=== PATIENT | male | born 1975 | race Caucasian/White ===

== ENCOUNTER 2018-09-18 12:00 | Day surgery (SDC) | payer OTHER, MEDICAID ==
[2018-09-18] MEDS ORDERED: LR 1,000 ML IV ONE (13:07)
[2018-09-18] MEDS ORDERED: ceFAZolin 2 GM/DEXTROSE 100 ML IV ONE (13:24)
[2018-09-18] MEDS ORDERED: LIDOCAINE 2% JELLY 20 ML (UROJECT) ONE (13:39)
[2018-09-18] MEDS ORDERED: MIDAZOLAM 2 MG/2 ML VIAL IVP ONE (13:46)
[2018-09-18] MEDS ORDERED: DEXAMETHASONE 4 MG/ML VIAL IVP PRN (13:47)
[2018-09-18] MEDS ORDERED: fentaNYL 100 MCG/2 ML INJ IVP PRN (13:47)
[2018-09-18] MEDS ORDERED: ALBUTEROL 3 ML DEYVIAL IH PRN (13:47)
[2018-09-18] MEDS ORDERED: ONDANSETRON 4 MG/2 ML VIAL IVP PRN (13:47)
[2018-09-18] MEDS ORDERED: LR 500 ML IV PRN (13:47)
[2018-09-18] MEDS ORDERED: LABETALOL HCL 5 MG/ML 20 ML MDV IVP PRN (13:47)
[2018-09-18] MEDS ORDERED: oxyCODONE IR 5 MG TAB PO PRN (13:47)
[2018-09-18] MEDS ORDERED: NALOXONE HCL 0.4 MG/ML INJ IVP PRN (13:47)
--- NOTE | 2018-09-18 13:49 | PDANEPAE ---
ANE History of Present Illness here for TURBT ANE Past Medical History - Cardiovascular History Hx Hypertension: No Hx Arrhythmias: No Hx Chest Pain: No Hx Coronary Artery / Peripheral Vascular Disease: No Hx CHF / Valvular Disease: No Hx Palpitations: No - Pulmonary History Hx COPD: No Hx Asthma/Reactive Airway Disease: No Hx Recent Upper Respiratory Infection: No Hx Oxygen in Use at Home: No Hx Sleep Apnea: No Sleep Apnea Screening Result - Last Documented: Negative - Neurologic History Hx Cerebrovascular Accident: No Hx Seizures: No Hx Dementia: No Neurologic History Comment: MIGRAINES SINCE CHILDHOOD - Endocrine History Hx Diabetes: No - Renal History Hx Renal Disorders: No Renal History Comment: SELF-CATH. BLADDER MASS - Liver History Hx Hepatic Disorders: No - Neurological & Psychiatric Hx Hx Neurological and Psychiatric Disorders: No - Cancer History Hx Cancer: No - Congenital Disorder History Hx Congenital Disorders: No - GI History Hx Gastrointestinal Disorders: Yes Gastrointestinal History Comment: ACID REFLUX - Other Health History Other Health History: ANEMIA IN PAST. BEDSORES - Chronic Pain History Chronic Pain: Yes (SHOULDER) - Surgical History Prior Surgeries: BLADDER SURGERY. CERVICAL FUSION. CYSTOSCOPIES. ORIF FEMUR JOSE. LEG FXS. RTC RIGHT. SPINAL CYST. SPLENECTOMY ANE Review of Systems Review of systems is: negative Review of Systems: - Exercise capacity METS (RN): 4 METS ANE Patient History - Allergies Allergies/Adverse Reactions: acetaminophen [From Vicodin] Allergy (Verified 05/10/15 10:07) ciprofloxacin Allergy (Verified 09/18/18 13:15) hydrocodone bitartrate [From Vicodin] Allergy (Verified 05/10/15 10:07) morphine Allergy (Verified 05/10/15 10:07) vancomycin Allergy (Verified 09/18/18 13:14) - Home Medications Home medications: home medication list seen and reviewed Home Medications: Baclofen [Baclofen 10 mg (RX)] 05/10/15 [Last Taken 09/18/18] Diazepam [Valium 2 MG (RX)] 05/10/15 [Last Taken 09/18/18] Colace 09/07/18 [Last Taken 09/18/18] Herbals/Supplements -Info Only 09/07/18 [Last Taken 09/18/18] Ranitidine HCl 09/07/18 [Last Taken 09/18/18] - NPO status NPO Status: no food or drink >8 hours NPO Since - Liquids (Date): 09/18/18 NPO Since - Liquids (Time): 11:00 NPO Since - Solids (Date): 09/17/18 NPO Since - Solids (Time): 20:00 - Smoking Hx Smoking Status: Former smoker ANE Labs/Vital Signs - Vital Signs Blood Pressure: 103/62 Heart Rate: 65 Respiratory Rate: 18 O2 Sat (%): 95 Height: 177.8 cm Weight: 74.843 kg ANE Physical Exam - Airway Neck exam: FROM Mallampati Score: Class 1 Mouth exam: normal dental/mouth exam - Pulmonary Pulmonary: no respiratory distress - Cardiovascular Cardiovascular: regular rate and rhythym - ASA Status ASA Status: III ANE Anesthesia Plan Anesthesia Plan: GA w LMA
[2018-09-18] MEDS ORDERED: PROPOFOL/EMULSION 500 MG/50 ML BOTTLE IV ONE (13:56)
[2018-09-18] MEDS ORDERED: fentaNYL 100 MCG/2 ML INJ ONE ×2 (13:58→14:38)
[2018-09-18] MEDS ORDERED: GENTAMICIN SULFATE IV ONE (14:00)
[2018-09-18] MEDS ORDERED: D5W IV ONE (14:00)
--- NOTE | 2018-09-18 14:11 | PDHPUP ---
History & Physical Update H&P update statement: This history and physical update is based on an assessment of the patient which was completed after admission or registration (within 24 hours), but prior to the surgery/procedure. H&P update: H&P reviewed & patient examined (Patient with colonized urine sample - Entercoccus and E coli. Preop abx gent and Ancef should provide adequate coverage for his urine. )
[2018-09-18] MEDS ORDERED: PHENYLEPHRINE HCL 100 MCG/ML SYR ONE (14:39)
[2018-09-18] MEDS: OPIUM/BELLADONNA ALKALO SUPP PR ONE ×2 (14:58→15:58)
[2018-09-18] MEDS ORDERED: ePHEDrine SULFATE 25 MG/5 ML SYR ONE (15:26)
--- NOTE | 2018-09-18 15:51 | POSTOPPROG ---
Post Op Note Date of Operation: 09/18/18 Surgeon: Fannie Smith Anesthesiologist: Nir Anesthesia: GET(General Endotracheal) Pre-op Diagnosis: bladder tumor, chronic indwelling catheter, neurogenic bladder Post-op Diagnosis: same Indication: bladder tumor Procedure: cysto,TURBT Findings: abnormal bladder mucosa concerning for tumor Inf/Abcess present in the surg proc area at time of surgery?: No EBL: Minimal Complications: None, patient tolerated procedure well Drains: Other (chronic lawson catheter) Specimen(s): bladder tumor
--- NOTE | 2018-09-18 16:08 | POSTANESTH ---
Post Anesthetic Evaluation Cardiovascular Status: Normal, Stable Respiratory Status: Normal, Stable Level of Consciousness/Mental Status: Can Participate in Eval Pain Control: Adequate, Prn Tx Ordered Nausea/Vomiting Control: Adequate, Prn Tx Ordered Complications Possibly Related to Anesthesia: None Noted
[2018-09-18 17:18] VITALS: BP 145/90
--- NOTE | 2018-09-19 02:17 | GOP ---
[f rep st] OPERATIVE REPORT DATE OF OPERATION: 09/18/2018 SURGEON: Fannie Smith MD ANESTHESIA: General. ANESTHESIOLOGIST: Dr. Loyola. 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 POSTOPERATIVE DIAGNOSIS: Bladder tumor, chronic indwelling Lawson catheter, neurogenic bladder, secondary to paraplegia. PROCEDURE PERFORMED: Cystoscopy and transurethral resection of bladder tumor. FINDINGS: Abnormal bladder mucosa, concerning for tumor, not involving the ureteral orifices. The abnormal tissue was in the posterior bladder. SPECIMENS: Bladder tumor. ESTIMATED BLOOD LOSS: Minimal. INDICATIONS: Patient underwent a surveillance cystoscopy due to his chronic indwelling Lawson catheter. He had abnormal bladder mucosa. Since it was papillary-appearing, and did appear to be concerning for malignancy, I discussed this with the patient. I recommended a bladder resection of this area and he understood this, and agreed to proceed. DESCRIPTION OF PROCEDURE: The patient was seen in my office last week, where we went over the rationale, risks, and benefits. The risks include bleeding, infection, pain, injury to the urethra, the bladder, ureteral orifices, need for subsequent procedures. He understood these risks and agreed to proceed. Also, he did have a UA sample that had multiple colonies, and it grew out Escherichia coli and enterococcus, and I did give him gentamicin and Ancef today , that is sufficient to cover this chronic colonized urine sample. He was taken back to the cystoscopy suite, placed on the cystoscopy table in supine position. General anesthesia induced without complication. Time-out performed. Core measures satisfied, including placement of a Sanford Hugger, SCDs , and administration of gentamicin antibiotics and Ancef. He was carefully positioned on the table. All pressure points padded. He had multiple wounds, including on his knee, that had a scar. He also had an open decubitus wound in the back, and we carefully positioned him in the supine position, in lithotomy, and padded all the pressure points. 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 I removed the catheter and then his genitalia were prepped and draped in the standard surgical fashion with Betadine. A rigid cystoscope 22-[place]ican easily cannulated the urethral meatus, and was advanced atraumatically into the bladder, and carmona cystoscopy was performed. The area of abnormality was seen in the posterior bladder, and also going up the posterior wall, not just in the trigone, and not just where the Lawson catheter would be coming in contact with the bladder. I did carmona cystoscopy, and this was the only area of concern. There were some other areas of erythema in the bladder, but it was not diffuse, these areas did not appear concerning for tumor and did not appear that he had a urinary tract infection. I removed the cystoscope and then placed the TURis resectoscope with a visual obturator, and I resected the area with a loop of abnormality, up to where the ureteral orifices were, but I did not violate the ureteral orifice during the procedure. I did not resect an area in the posterior bladder that was consistsent with lawson edema. The bladder tumor pieces were then removed from the bladder and sent to Pathology. Electrocautery was used liberally to gain and maintain hemostasis, and there was very little blood loss. At the end of the procedure I felt I had gotten a good sample of this area for pathology. Hemostasis was excellent. The TURis resectoscope was removed and then a 20- [place], 2-way Lawson catheter was placed, with return of clear urine. I did use a Hui syringe to irrigate it, and the irrigant was clear. I inflated the balloon to 15 mL of sterile water, and at this point, I considered the procedure complete. He was awakened anesthesia and transferred to PACU in good condition. We will communicate the pathology result when reported. COMPLICATIONS: None, the patient tolerated the procedure well. ESTIMATED BLOOD LOSS: Minimal. DRAINS: Chronic Lawson catheter. /[id number]/MODL MTDD
== END 2018-09-18 17:17 | disposition home or self-care (01) ==
LOC: FSGY 12:00
PROVIDERS: ATTEND Urology
PROC: 0TBB8ZZ Excision of Bladder, Via Natural or Artificial Opening Endoscopic (ICD-10-PCS; principal; 2018-09-18 13:45)
DX: D49.4 Neoplasm of unspecified behavior of bladder (principal); G82.22 Paraplegia, incomplete; N31.9 Neuromuscular dysfunction of bladder, unspecified; L98.428 Non-pressure chronic ulcer of back with other specified severity; N39.0 Urinary tract infection, site not specified; M25.511 Pain in right shoulder; F32.9 Major depressive disorder, single episode, unspecified; E11.9 Type 2 diabetes mellitus without complications; Z96.0 Presence of urogenital implants; Z86.14 Personal history of Methicillin resistant Staphylococcus aureus infection
CPT/HCPCS: 88323-90; 88342; J0690; J1100; J1580; J2250; J2370; J2704; J3010

== ENCOUNTER 2018-10-26 08:10 | Day surgery (SDC) | payer OTHER, MEDICAID ==
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
[2018-10-26] MEDS ORDERED: D5W IV ONE (08:19)
[2018-10-26] MEDS ORDERED: ceFAZolin 2 GM/DEXTROSE 100 ML IV ONE (08:19)
[2018-10-26] MEDS ORDERED: GENTAMICIN SULFATE IV ONE (08:19)
[2018-10-26] MEDS ORDERED: LR 1,000 ML IV ONE (08:20)
[2018-10-26] MEDS ORDERED: LIDOCAINE 1% 2 ML INJ ID PRN (08:20)
[2018-10-26] MEDS ORDERED: LIDOCAINE 2% JELLY 20 ML (UROJECT) ONE (09:01)
[2018-10-26] MEDS ORDERED: MIDAZOLAM 2 MG/2 ML VIAL IVP ONE (09:37)
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
[2018-10-26] MEDS ORDERED: LIDOCAINE 2% 100 MG/5 ML SYR ONE (10:21)
[2018-10-26] MEDS ORDERED: ONDANSETRON 4 MG/2 ML VIAL ONE (10:21)
[2018-10-26] MEDS ORDERED: fentaNYL 100 MCG/2 ML INJ ONE (10:21)
[2018-10-26] MEDS ORDERED: PROPOFOL 200 MG/20 ML VIAL ONE (10:21)
[2018-10-26] MEDS ORDERED: DEXAMETHASONE 4 MG/ML VIAL ONE (10:21)
[2018-10-26] MEDS ORDERED: LABETALOL HCL 5 MG/ML 20 ML MDV IVP PRN (11:03)
[2018-10-26] MEDS ORDERED: oxyCODONE IR 5 MG TAB PO PRN (11:03)
[2018-10-26] MEDS ORDERED: NALOXONE HCL 0.4 MG/ML INJ IVP PRN (11:03)
[2018-10-26] MEDS ORDERED: MEPERIDINE 25 MG/0.5 ML AMP IVP PRN (11:03)
[2018-10-26] MEDS ORDERED: ONDANSETRON 4 MG/2 ML VIAL IVP PRN (11:03)
[2018-10-26] MEDS ORDERED: DEXAMETHASONE 4 MG/ML VIAL IVP PRN (11:03)
[2018-10-26] MEDS ORDERED: HYDROmorphONE/DILAUDID 1 MG/ML INJ IVP PRN (11:03)
[2018-10-26] MEDS ORDERED: PROMETHAZINE HCL 25 MG/ML INJ IVP PRN (11:03)
[2018-10-26] MEDS ORDERED: fentaNYL 100 MCG/2 ML INJ IVP PRN (11:03)
--- NOTE | 2018-10-26 11:08 | POSTANESTH ---
Post Anesthetic Evaluation Cardiovascular Status: Normal, Stable, Similar to Pre-Op Cond Respiratory Status: Normal, Stable, Similar to Pre-op Cond. Level of Consciousness/Mental Status: Can Participate in Eval, Moderately Sleepy Pain Control: Adequate, Prn Tx Ordered Nausea/Vomiting Control: Adequate, Prn Tx Ordered Complications Possibly Related to Anesthesia: None Noted
--- NOTE | 2018-10-26 11:59 | POSTOPPROG ---
Post Op Note Date of Operation: 10/26/18 Surgeon: Fannie Smith Anesthesiologist: Olvin Anesthesia: GET(General Endotracheal) Pre-op Diagnosis: HPV bladder tumor Post-op Diagnosis: same Indication: HPV bladder tumor Procedure: cystoscopy, TURBT medium 3cm Findings: Maximial TURBT of a medium bladder tumor, prior path HPV Inf/Abcess present in the surg proc area at time of surgery?: No Complications: none, pt tolerated procedure well Drains: Other (Chronic urethral lawson) Specimen(s): bladder tumor
--- NOTE | 2018-10-26 13:09 | GOP ---
[f rep st] OPERATIVE REPORT DATE OF OPERATION: 10/26/2018 SURGEON: Fannie Smith MD ANESTHESIA: General. ANESTHESIOLOGIST: Dr. Bah. PREOPERATIVE DIAGNOSIS: Human papillomavirus bladder tumor, chronic indwelling Almaraz and paraplegia. POSTOPERATIVE DIAGNOSIS: Human papillomavirus bladder tumor, chronic indwelling Almaraz and paraplegia. PROCEDURE PERFORMED: Cystoscopy, transurethral resection of bladder tumor medium 3 cm. FINDINGS: Maximal TURBT of a medium-sized tumor. I feel I removed all tumor and got muscle in the specimen. SPECIMENS: Bladder tumor. ESTIMATED BLOOD LOSS: Minimal. INDICATIONS: The 2nd look TURBT after the 1st resection was found to be HPV related tumor. DESCRIPTION OF PROCEDURE: The patient was taken back to the cystoscopy suite, placed on the cystoscopy table in the supine position. General anesthesia induced without complication. Time-out performed. Core measures satisfied, including placement of Sanford Hugger SCDs and administration of gentamicin antibiotics which he got in preop as well as Ancef which he got at room time. He is contractured due to his paraplegia and he was carefully positioned on the table in stirrups and all pressure points were padded. The genitalia were then draped and prepped in the standard surgical fashion with Betadine. He has a hypospadias secondary to chronic indwelling urethral Almaraz. The visual obturator easily cannulated the urethral meatus and was advanced atraumatically into the bladder. [place] cystoscopy performed and the area of concern was easily visualized with a high-definition scope. I then resected the area of concern systematically, starting most posteriorly and working down toward the trigone. The ureteral orifices were not involved in the tumor. The resection was not done closely to them. I systematically resected and made sure I resected deep into the muscle, but did not perforate the bladder. I felt I got maximal resection. There were no other abnormalities in the bladder. There was certainly abnormal tissue that again I feel what is the HPV tumor. I did resect also what appeared to be just catheter inflammation because this is near the HPV tumor and I have sent all of it together, though. 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 I did not resect this area. I will carefully watch this with our next cystoscopy. He did well during the entire procedure. Blood loss was minimal. At the end of the resection, I used cautery to cauterize the edges and cauterize any bleeding vessels. Hemostasis was excellent. All bladder tumor specimen was removed with the [employer] evacuator and, at the end of the procedure, his urine was clear. I removed the resectoscope, placed his provided catheter that was sterile into the bladder after instilling lidocaine jelly. Clear urine was returned, 10 cc of sterile water was instilled into the balloon and at this point the procedure considered complete. He was awoken from anesthesia and transferred to PACU in good condition. We will follow up in 3 months for repeat cystoscopy in my clinic. COMPLICATIONS: None. The patient tolerated the procedure well. DRAINS: The chronic urethral Almaraz. /[id number]/MODL MTDD
[2018-10-26 13:56] VITALS: BP 131/81
== END 2018-10-26 13:10 | disposition home or self-care (01) ==
LOC: FSGY 08:10
PROVIDERS: ATTEND Urology
PROC: 0TBB8ZX Excision of Bladder, Via Natural or Artificial Opening Endoscopic, Diagnostic (ICD-10-PCS; principal; 2018-10-26 09:45)
DX: D49.4 Neoplasm of unspecified behavior of bladder (principal); B33.8 Other specified viral diseases; G82.22 Paraplegia, incomplete; N31.9 Neuromuscular dysfunction of bladder, unspecified; F32.9 Major depressive disorder, single episode, unspecified; E11.9 Type 2 diabetes mellitus without complications; Z96.0 Presence of urogenital implants; Z86.14 Personal history of Methicillin resistant Staphylococcus aureus infection
CPT/HCPCS: J0690; J1100; J1580; J2001; J2250; J2405; J2704; J3010